=== PATIENT | female | born 2005 | race Caucasian/White ===

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

== ENCOUNTER 2023-01-30 14:54 | Emergency (ER) | payer OTHER, SELFPAY ==
[2023-01-30 15:04] VITALS: BP 123/77; PULSE 92; RESP 16; TEMP 36.3; O2SAT 100
--- NOTE | 2023-01-30 15:18 | ED.LOWEXIN ---
HPI - Extremity Injury (Lower) General Chief Complaint: Extremity Injury, Lower Stated Complaint: right Knee pain Time Seen by Provider: 01/30/23 15:18 Source: patient Mode of arrival: ambulatory Limitations: no limitations History of Present Illness HPI Narrative: 17-year-old female presents with complaint of pain to right knee. Patient states that her boyfriend was chasing her today, just by sitting around, and her right knee hit the couch. Reports that the pain caused her to be late for work so she decided not to go. Needs a work note. Ambulatory with steady gait. Full range of motion To right knee and distal neurovascularly intact. all systems reviewed and negative except as noted above. Related Data Home Medications Medication Instructions Recorded Confirmed etonogestrel 68 mg subdermal 1 implant subdermal ONCE 01/30/23 01/30/23 implant (Nexplanon) Allergies Allergy/AdvReac Type Severity Reaction Status Date / Time Penicillins AdvReac Hives Verified 01/30/23 14:56 Review of Systems Review of Systems: CONSTITUTIONAL: Denies fever, chills, or sweats. EYES: Denies visual changes, redness, or discharge. ENT: Denies rhinorrhea, congestion, sore throat, or otalgia. CARDIOVASCULAR: Denies chest pain, palpitations, or edema. RESPIRATORY: Denies cough or dyspnea. GASTROINTESTINAL: Denies abdominal pain, nausea, vomiting, or diarrhea. GENITOURINARY: Denies dysuria or hematuria. SKIN: Denies rash or itching. MUSCULOSKELETAL: Reports pain and swelling to right knee. NEUROLOGIC: Denies headache, numbness, or weakness. PSYCHIATRIC: Denies anxiety or depression. All other systems reviewed are negative, except as documented in HPI. PMFSH Past Medical History Medical History Patient denies significant medical history Social History Social History Smoking status: Never smoker Gender identity (if verbalized by the patient): Female Comments At time of signature, agree with nursing past medical, surgical, social and family history. There is no relevant family history pertinent to the presenting complaint. Exam Narrative: GENERAL: This is a well-nourished, well-developed patient, in no apparent distress. HEAD: normocephalic, atraumatic. EYES: PERRL. Sclera clear/white. Vision is grossly intact. EARS: External ears normal NOSE: External nose normal NECK: Neck supple, non-tender without lymphadenopathy, masses or thyromegaly. CARDIOVASCULAR: Regular rate and rhythm without murmurs, gallops, or rubs. RESPIRATORY: Clear to auscultation. Breath sounds equal bilaterally. No wheezes, rales, or rhonchi. SKIN: warm, Dry, intact with no suspicious lesions or rash, good texture and turgor. NEURO: awake, alert, and oriented to person, place and time. There were no obvious focal neurologic abnormalities. EXTREMITIES: Contusion noted to anterior aspect right knee with mild swelling, tender on palpation. full passive and active range of motion to right knee. No instability, negative anterior posterior drawer testing. Course Course Level of Care: Express Care Visit Vital Signs Vital signs: Vital Signs Temperature 36.3 C L 01/30/23 15:04 Pulse Rate 92 01/30/23 15:04 Respiratory Rate 16 01/30/23 15:04 Blood Pressure 123/77 01/30/23 15:04 Pulse Oximetry 100 01/30/23 15:04 Oxygen Delivery Room Air 01/30/23 15:04 Temperature 36.3 C L 01/30/23 15:04 Pulse Rate 92 01/30/23 15:04 Respiratory Rate 16 01/30/23 15:04 Blood Pressure 123/77 01/30/23 15:04 Pulse Oximetry 100 01/30/23 15:04 Oxygen Delivery Room Air 01/30/23 15:04 Reviewed MDM - Extremity Injury (Lower) MDM Narrative Medical decision making narrative: Patient is aware of diagnosis, understands and agrees to treatment plan. Anticipatory guidance given. Patient agrees to follow-up as direct
== END 2023-01-30 15:54 | disposition home or self-care (01) ==
PROVIDERS: Emergency Provider Nurse Practitioner Family
DX: S80.01XA Contusion of right knee, initial encounter (principal); W22.03XA Walked into furniture, initial encounter
CPT/HCPCS: 99213; G0463

== ENCOUNTER 2023-05-03 09:35 | Emergency (ER) | payer OTHER, SELFPAY ==
[2023-05-03 09:45] VITALS: BP 124/68; PULSE 102; RESP 16; TEMP 36.5; O2SAT 99
--- NOTE | 2023-05-03 09:56 | ED.URI ---
HPI - URI/Sore Throat General Chief Complaint: Upper Respiratory Infection Stated Complaint: Sinus/Headache/Diarrhea Time Seen by Provider: 05/03/23 10:00 Source: patient and RN notes reviewed Mode of arrival: ambulatory Limitations: no limitations History of Present Illness HPI Narrative: 18-year-old female presents with concern for runny nose, stuffy nose, dry cough and sore throat that started 4 days ago. 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 She denies fever, aches, chills, sweats. Reports diarrhea. MD elicited complaint: cough and sore throat Related Data Home Medications Medication Instructions Recorded Confirmed etonogestrel 68 mg subdermal 1 implant subdermal ONCE 01/30/23 05/03/23 implant (Nexplanon) Allergies Allergy/AdvReac Type Severity Reaction Status Date / Time Penicillins AdvReac Hives Verified 01/30/23 14:56 Review of Systems Review of Systems: CONSTITUTIONAL: Denies malaise, chills, sweats, or fever. EYES: Denies visual changes, redness, or discharge. ENT: Reports rhinorrhea, congestion, sore throat. Denies sinus pain, otalgia CARDIOVASCULAR: Denies chest pain, palpitations, or edema. RESPIRATORY: Reports cough. Denies dyspnea. GASTROINTESTINAL: Denies abdominal pain, nausea, vomiting. Reports diarrhea SKIN: Denies rash or itching. MUSCULOSKELETAL: Denies myalgia. NEUROLOGIC: Denies headache. All systems reviewed & are unremarkable except as noted in HPI and below PMFSH Past Medical History Medical History Patient denies significant medical history Social History Social History Smoking status: Never smoker Gender identity (if verbalized by the patient): Female Comments At time of signature, agree with nursing past medical, surgical, social and family history. There is no relevant family history pertinent to the presenting complaint Exam Narrative: GENERAL: Well-appearing, well-nourished, and in no acute distress. HEAD: Normocephalic EYES: PERRLA, conjunctivae clear ENT: Nares clear, turbinates edematous and erythematous, clear discharge. Mucous membranes moist. TM pearly hsieh with dull light reflex bilaterally; no tragal tenderness. Oropharynx not erythematous without lesions. Tonsils not enlarged and without exudate, no drooling, no hoarseness, no trismus, uvula midline. NECK: Supple. No lymphadenopathy CHEST: Clear to auscultation, breath sounds equal. No wheezing, rhonchi, rales, or stridor. No respiratory distress, speaks in full sentences. HEART: Regular rate and rhythm. No murmur heard. SKIN: Warm, dry, no rash. NEURO: Alert and oriented x3. PSYCH: Normal mood and affect Course Course Emergency Course: Patient is aware of diagnosis, understands and agrees to treatment plan. Anticipatory guidance given. Patient agrees to follow-up as directed and is aware of reasons to seek care at the emergency department. Portions of this record may have been created with voice recognition software Level of Care: Express Care Visit Vital Signs Vital signs: Vital Signs Temperature 97.7 F 05/03/23 09:45 Pulse Rate 102 H 05/03/23 09:45 Respiratory Rate 16 05/03/23 09:45 Blood Pressure 124/68 05/03/23 09:45 Pulse Oximetry 99 05/03/23 09:45 Oxygen Delivery Room Air 05/03/23 09:45 Temperature 97.7 F 05/03/23 09:45 Pulse Rate 102 H 05/03/23 09:45 Respiratory Rate 16 05/03/23 09:45 Blood Pressure 124/68 05/03/23 09:45 Pulse Oximetry 99 05/03/23 09:45 Oxygen Delivery Room Air 05/03/23 09:45 Reviewed. MDM - URI/Sore Throat MDM Narrative Medical decision making narrative: Differential diagnosis considered: Kumar virus, strep pharyngitis, allergic rhinitis, upper respiratory tract infection, sinusitis, rhinosinusitis, nasopharyngitis. viral pharyngitis, otitis media, otitis exter
== END 2023-05-03 10:18 | disposition home or self-care (01) ==
PROVIDERS: Emergency Provider Nurse Practitioner; PCP Internal Medicine
DX: J06.9 Acute upper respiratory infection, unspecified (principal)
CPT/HCPCS: 99213; G0463

== ENCOUNTER 2023-08-18 08:49 | Emergency (ER) | payer OTHER, SELFPAY ==
--- NOTE | 2023-08-18 08:52 | ED.URI ---
HPI - URI/Sore Throat General Chief Complaint: Upper Respiratory Infection Stated Complaint: Sinus Time Seen by Provider: 08/18/23 08:52 Source: patient Mode of arrival: ambulatory Limitations: no limitations History of Present Illness HPI Narrative: Catherine is a 18-year-old female patient presenting to the clinic today with complaints of sinus congestion, nausea, vomiting, diarrhea, sore throat, and general abdominal discomfort times 8 days. She reports over the last 1-2 days she has been vomiting. Was vomiting yesterday at work and her work told her she needed to come in to be evaluated to be able to return. Related Data Home Medications Medication Instructions Recorded Confirmed etonogestrel 68 mg subdermal 1 implant subdermal ONCE 01/30/23 08/18/23 implant (Nexplanon) Allergies Allergy/AdvReac Type Severity Reaction Status Date / Time Penicillins AdvReac Hives Verified 08/18/23 08:59 Review of Systems Review of Systems: Pertinent positives per HPI. Patient denies any fever, chills, rash, headache, visual changes, dizziness, cough, runny nose, sore throat, shortness of breath, chest pain, palpitations, constipation, or any urinary issues. [facility] Past Medical History Medical History Patient denies significant medical history Social History Social History Smoking status: Never smoker Gender identity (if verbalized by the patient): Female Comments At the time of my signature, I reviewed and agree with the nursing past medical, surgical, social, and family history. There is no relevant family history pertinent to the patient complaint. Exam Narrative: General: Well-developed, well nourished, in no apparent distress Head: Normocephalic, atraumatic Eyes: Pupils equally round and reactive to light bilaterally, EOM intact, sclera and conjunctive clear, no discharge, lids normal Ears: TMs intact and clear, ear canals clear, no drainage, grossly hearing normal. Nose: Nares patent, clear discharge, no inflammation, no sinus tenderness. Mouth: Oropharynx red without lesions or masses, good dentition, MMM. Neck: Supple, trachea midline, no enlargement of anterior or posterior cervical nodes, no thyroid masses or goiter palpable. Cardio: Regular rate and rhythm, s1 and s2 normal, no murmur appreciated. Resp: Clear to auscultation bilaterally anteriorly and posteriorly, no rhonchi, rales, wheezing or rubs Abdomen: Soft, pliable, bowel sounds present in all quadrants, mild tender to palpation over the lower abdomen and suprapubic area, no organomegly, no CVAT tenderness. Course Course Emergency Course: Portions of this record may have been created with voice recognition software. Level of Care: Express Care Visit Vital Signs Vital signs: Vital signs reviewed MDM - URI/Sore Throat MDM Narrative Medical decision making narrative: At the time of visit patient is resting comfortably on the exam table. UA, UA preg, and strep test was performed. Strep test was negative. We will send strep for culture. urine preg test was negative. UA shows trace of leukocytes and uro. We will send for culture. I suspect patient has viral gastroenteritis. Prescription for Zofran was sent to the pharmacy and supportive measures were discussed with patient she voiced understanding of the discharge instructions and agrees to treatment plan. Differential Diagnosis Differential diagnosis: Likely upper respiratory infection, sinusitis, viral infection, bronchitis, influenza, pharyngitis and other (COVID) Discharge Plan Discharge Clinical Impression: Viral gastroenteritis Patient Disposition: Home, Self-Care Condition: Stable Instructions: Antibiotic Form, Gastroenteritis (ED) Additional Instructions: Strep test was negative. We will send strep for culture if this comes back positive we
[2023-08-18 08:58] VITALS: BP 108/75; PULSE 92; RESP 16; TEMP 36.6; O2SAT 99
== END 2023-08-18 09:40 | disposition home or self-care (01) ==
PROVIDERS: Emergency Provider Nurse Practitioner Family; PCP Internal Medicine
DX: A08.4 Viral intestinal infection, unspecified (principal)
CPT/HCPCS: 81003; 87081; 87086; 87880; 99213; G0463

== ENCOUNTER 2024-01-10 15:36 | Emergency (ER) | payer OTHER, SELFPAY ==
[2024-01-10 15:50] VITALS: BP 144/87; PULSE 102; RESP 18; TEMP 36.7; O2SAT 99
--- NOTE | 2024-01-10 16:00 | ED.GENADULT ---
HPI - General Adult General Chief complaint: Abdominal Pain Stated complaint: stomach cramping Time Seen by Provider: 01/10/24 16:00 Source: patient, RN notes reviewed and old records reviewed Mode of arrival: ambulatory Limitations: no limitations History of Present Illness HPI narrative: 18-year-old female presents to the [facility] with complaints of lower abdominal cramping without significant pain since last night. Denies any urinary symptoms. Denies any diarrhea. Denies any nausea or vomiting. Denies any back pain Unknown last period Treatments prior to arrival: none Related Data Home Medications Medication Instructions Recorded Confirmed etonogestrel 68 mg subdermal 1 implant subdermal ONCE 01/30/23 01/10/24 implant (Nexplanon) Allergies Allergy/AdvReac Type Severity Reaction Status Date / Time Penicillins AdvReac Hives Verified 01/10/24 15:55 Review of Systems Review of Systems: All systems reviewed & are unremarkable except as noted in HPI and below Constitutional: Constitutional: Reports no additional constitutional complaints Eyes: Eyes: Reports no additional eye complaints ENT: Reports system reviewed and no additional complaints, except as documented Cardiovascular: Cardiovascular: Reports no additional cardiovascular complaints, Denies chest pain and Denies dyspnea Respiratory: Respiratory: Reports no additional respiratory complaints, Denies chest congestion, Denies cough and Denies dyspnea Gastrointestinal: Gastrointestinal: Reports as per HPI, Reports abdominal pain (Cramping generalized), Reports GI cramping, Denies nausea and Denies vomiting Musculoskeletal: Musculoskeletal: Reports no additional musculoskeletal complaints Integumentary/Breasts: Skin/Breast: Reports system reviewed and no additional complaints, except as docu Neurologic: Reports system reviewed and no additional complaints, except as documented Psychiatric: Psychiatric: Reports no additional psychiatric complaints Allergic/Immunologic: Allergic/Immunologic: Reports no additional allergic/immunologic complaints [facility] Past Medical History Medical History Patient denies significant medical history Social History Social History Smoking status: Never smoker Gender identity (if verbalized by the patient): Female Comments At the time of my signature, I reviewed and agree with the nursing past medical, surgical, social, and family history. There is no relevant family history pertinent to the patient complaint. Exam Const: General: cooperative, healthy appearing, comfortable, no acute distress, well developed, alert and well nourished Nutritional Appearance: well nourished Orientation/consciousness: patient oriented x3 Limitations: no limitations HENMT: Head: normal to inspection Ears: hearing grossly normal bilaterally and external ears normal Face/Nose/Sinus: Normal external nose present, Normal nares present, Normal nasal mucous membranes and turbinates present, normal facial exam and face symmetric Face and sinus: normal facial exam and face symmetric Mouth: Yes Normal oral and palatal mucosa present, Yes lip normal and Yes moist mucous membranes Throat: posterior oropharynx normal and uvula midline Eyes: General: appearance normal, both eyes and all related structures Alignment and Position: alignment normal Periorbital: periorbital findings normal Pupils: Equal, round and reactive pupils present EOM: EOMs intact bilaterally Neck: Neck: normal visual inspection, full ROM, no lymphadenopathy and no meningeal signs Chest: Chest palpation & inspection: normal inspection of the chest Resp: Effort & Inspection: normal respiratory effort and able to speak in complete sentences Auscultation: clear to auscultation bilaterally, no crackles, no rales, no rhonchi and no wheezes Cardio: Rate: regular rate
== END 2024-01-10 16:28 | disposition home or self-care (01) ==
PROVIDERS: Emergency Provider Nurse Practitioner; PCP Internal Medicine
DX: Z32.02 Encounter for pregnancy test, result negative (principal); N30.00 Acute cystitis without hematuria
CPT/HCPCS: 81003; 81025; 87086; 99213; G0463

== ENCOUNTER 2024-04-01 18:27 | Emergency (ER) | payer OTHER, SELFPAY ==
--- NOTE | ~2024-04-01 | XR_ITS ---
EXAMINATION: XR ankle RT min 3V DATE: 04/01/2024 18:52 INDICATION: Right ankle pain. Fall. TECHNIQUE: 4 views of right ankle were obtained. COMPARISON: None. FINDINGS: Bone alignment is normal. No fracture. There is mild osteoarthritis of talonavicular joint. There is ankle soft tissue swelling. IMPRESSION: 1. Mild osteoarthritis of talonavicular joint. Reviewed, dictated and finalized at location E.
[2024-04-01 18:43] VITALS: BP 138/82; PULSE 96; RESP 18; TEMP 36.8; O2SAT 100
--- NOTE | 2024-04-01 19:54 | ED.GENADULT ---
HPI - General Adult General Chief complaint: Extremity Injury, Lower Stated complaint: rt ankle injury Source: patient Mode of arrival: ambulatory Limitations: no limitations History of Present Illness HPI narrative: Patient presents for evaluation of right ankle pain. Symptom onset today. She was at a park with her kids. She states she stepped on a soft surface, which caused her to fall. She did not hit her head. No LOC. She heard a pop in her right ankle. She now has pain that she rates 8/10 in severity in the lateral aspect of the right ankle. She states it feels like something is squeezing. She denies paresthesias. Pain is worse with movement and weight-bearing. She has not taken any medication for symptoms. She states she is not . She is compliant with control. Related Data Home Medications Medication Instructions Recorded Confirmed etonogestrel 68 mg subdermal 1 implant subdermal ONCE 01/30/23 04/01/24 implant (Nexplanon) Allergies Allergy/AdvReac Type Severity Reaction Status Date / Time Penicillins AdvReac Hives Verified 04/01/24 18:35 Review of Systems Review of Systems: CONSTITUTIONAL: Denies fever, chills, or sweats. EYES: Denies visual changes, redness, or discharge. ENT: Denies rhinorrhea, congestion, sore throat, or otalgia. CARDIOVASCULAR: Denies chest pain, palpitations, or edema. RESPIRATORY: Denies cough or dyspnea. GASTROINTESTINAL: Denies abdominal pain, nausea, vomiting, or diarrhea. GENITOURINARY: Denies dysuria or hematuria. SKIN: Denies rash or itching. MUSCULOSKELETAL: Reports right ankle swelling and pain. NEUROLOGIC: Denies headache, numbness, dizziness, or weakness. PSYCHIATRIC: Denies anxiety or depression. [facility] Past Medical History Medical History Patient denies significant medical history Surgical History Surgical History No pertinent past surgical history Family History Family History Mother Family history non-contributory Social History Social History Smoking status: Never smoker Substance use: never Living arrangements: with family Gender identity (if verbalized by the patient): Female Spiritual care concerns: No Exam Narrative: GENERAL: Well-appearing, well-nourished, and in no acute distress. HEAD: Normocephalic, atraumatic. EYES: PERRLA and EOMI. ENT: Nares clear, no rhinorrhea or epistaxis. Mucous membranes moist. Oropharynx without tonsillar hypertrophy exudate or other lesions. Bilateral TMs pearly hsieh nonbulging NECK: Supple. No adenopathy or masses. No carotid bruits or JVD CHEST: Clear to auscultation. No respiratory distress. No wheezes rales or rhonchi HEART: Regular rate and rhythm. No murmur heard. Normal peripheral pulses. ABDOMEN: Soft, nontender, nondistended, normal active bowel sounds. EXTREMITIES: There is trace nonpitting edema noted to the right ankle. She is able to dorsi and plantar flex the right foot. There is tenderness over the lateral aspect of the right ankle without any crepitus or deformity. SKIN: Warm, dry, no rash. NEURO: No focal deficits. Alert and oriented x3. PSYCH: Normal mood and affect. Course Course Emergency Course: This is a 19-year-old female who presented for evaluation of right ankle pain and swelling following a fall. X-ray negative for fracture. Exam is consistent with sprain. Provided with Sharan wrap. Advised on RICE therapy. NSAIDs and Flexeril for pain. Follow-up with primary provider. Go to the ER for worsening symptoms. Patient in agreement with plan of care Level of Care: Express Care Visit Vital Signs Vital signs: Vital Signs Temperature 36.8 C 04/01/24 18:43 Pulse Rate 96 04/01/24 18:43 Res
== END 2024-04-01 20:05 | disposition home or self-care (01) ==
PROVIDERS: Emergency Provider Nurse Practitioner
DX: S93.401A Sprain of unspecified ligament of right ankle, initial encounter (principal); W19.XXXA Unspecified fall, initial encounter
CPT/HCPCS: 73610; 99213; G0463

== ENCOUNTER 2024-05-06 11:39 | Emergency (ER) | payer OTHER, SELFPAY ==
--- NOTE | ~2024-05-06 | XR_ITS ---
EXAMINATION: XR foot RT min 3V DATE: 05/06/2024 12:09 INDICATION: Lateral right foot and ankle pain post injury TECHNIQUE: Dorsoplantar, two oblique and lateral views of the right foot were obtained. COMPARISON: None. FINDINGS: Nondisplaced oblique extra articular fracture of the distal diaphysis of the right fifth metatarsal. Alignment remains essentially anatomic. No other fractures identified. Joint spaces are normal. Mild soft tissue swelling along the lateral aspect of the forefoot. IMPRESSION: 1. Nondisplaced extra articular distal diaphyseal fracture of the right fifth metatarsal. Reviewed, dictated and finalized at location A. IMPRESSION: 1. Nondisplaced extra articular distal diaphyseal fracture of the right fifth m etatarsal.
[2024-05-06 11:52] VITALS: BP 120/76; PULSE 73; RESP 16; TEMP 37.2; O2SAT 98
--- NOTE | 2024-05-06 11:55 | ED.LOWEXIN ---
HPI - Extremity Injury (Lower) General Chief Complaint: Extremity Injury, Lower Stated Complaint: right foot/ankle pain Time Seen by Provider: 05/06/24 11:55 Source: patient and RN notes reviewed Mode of arrival: ambulatory Limitations: no limitations History of Present Illness HPI Narrative: 19-year-old female presents concern for injury to her right foot. Reports she sprained the right ankle about a month ago and that was healing normally. Reports today she rolled the ankle and began having foot pain beneath the 5th digit. She denies intervention for the pain so far. She denies decreased strength, sensation, range of motion in the foot or digits. MD complaint: foot injury Related Data Home Medications Medication Instructions Recorded Confirmed etonogestrel 68 mg subdermal 1 implant subdermal ONCE 01/30/23 04/01/24 implant (Nexplanon) Allergies Allergy/AdvReac Type Severity Reaction Status Date / Time Penicillins AdvReac Hives Verified 04/01/24 18:35 Review of Systems Review of Systems: CONSTITUTIONAL: Denies malaise, chills, sweats, or fever. SKIN: Denies rash or itching, open skin, laceration, abrasion, redness, warmth, swelling. MUSCULOSKELETAL: Reports right foot pain and bruising NEUROLOGIC: Denies numbness, weakness All systems reviewed & are unremarkable except as noted in HPI and below PMFSH Past Medical History Medical History (Updated 05/06/24 @ 12:15 by Roma Roe NP) Patient denies significant medical history Surgical History Surgical History No pertinent past surgical history Family History Family History Mother Family history non-contributory Social History Social History Smoking status: Never smoker Substance use: never Living arrangements: with family Gender identity (if verbalized by the patient): Female Spiritual care concerns: No Comments At time of signature, agree with nursing past medical, surgical, social and family history. There is no relevant family history pertinent to the presenting complaint Exam Narrative: GENERAL: Well-appearing, well-nourished, and in no acute distress. HEAD: Normocephalic, atraumatic. EYES: PERRLA, conjunctivae clear NECK: Supple. CHEST: Speaks in full sentences. No respiratory distress. HEART: Regular rate and rhythm. Normal and equal peripheral pulses. EXTREMITIES: Right foot, digits have grossly normal strength and sensation, normal range of motion. Mild lateral edema and ecchymosis. Normal sensation with sensitivity to light touch and pain. Tenderness below the 5th digit. No open wounds, no skin tenting, no devitalized tissue or atrophy, no trophic changes, no obvious deformity, alignment normal, nearby joints and structures intact. Distal pulses palpable and equal bilaterally, skin warm, dry, pink. Capillary refill less than 3 seconds. SKIN: Warm, dry, no rash. NEURO: Alert and oriented x3. PSYCH: Normal mood and affect Course Course Emergency Course: Patient is aware of diagnosis, understands and agrees to treatment plan. Anticipatory guidance given. Patient agrees to follow-up as directed and is aware of reasons to seek care at the emergency department. Portions of this record may have been created with voice recognition software Level of Care: Express Care Visit Vital Signs Vital signs: Vital Signs Temperature 99.0 F 05/06/24 11:52 Pulse Rate 73 05/06/24 11:52 Respiratory Rate 16 05/06/24 11:52 Blood Pressure 120/76 05/06/24 11:52 Pulse Oximetry 98 05/06/24 11:52 Oxygen Delivery Room Air 05/06/24 11:52 Temperature 99.0 F 05/06/24 11:52 Pulse Rate 73 05/06/24 11:52 Respiratory Rate 16 05/06/24 11:52 Blood Pressure 120/76 05/06/24 11:52 Pulse Oximetry 98 05/06/24 11:52 Oxygen Deliver
== END 2024-05-06 12:30 | disposition home or self-care (01) ==
PROVIDERS: Emergency Provider Nurse Practitioner
DX: S92.354A Nondisplaced fracture of fifth metatarsal bone, right foot, initial encounter for closed fracture (principal); X50.9XXA Other and unspecified overexertion or strenuous movements or postures, initial encounter
CPT/HCPCS: 73630; 99214; G0463

== ENCOUNTER 2024-06-30 09:48 | Outpatient (CLI) | payer OTHER, SELFPAY ==
--- NOTE | ~2024-06-30 | US_ITS ---
EXAMINATION: US venous doppler [facility] DATE: 06/30/2024 10:37 INDICATION: Right calf pain and swelling. TECHNIQUE: Grayscale ultrasound images without and with compression and Doppler ultrasound images of the bilateral lower extremity veins were obtained. COMPARISON: None. FINDINGS: The visualized portions of right common femoral vein, profunda (deep) femoral vein, femoral vein, pop liteal vein, peroneal veins, posterior tibial veins, and greater saphenous vein outflow are patent. The visualized portions of left common femoral vein, profunda femoral vein, femoral vein, popliteal v ein, peroneal veins, posterior tibial veins, and greater saphenous vein outflow are patent. IMPRESSION: 1. No deep venous thrombosis. Reviewed, dictated and finalized at location A.
== END 2024-06-30 09:49 | disposition home or self-care (01) ==
LOC: ANHIMG 09:49
PROVIDERS: Visit Provider Orthopaedic Surgery
DX: M79.669 Pain in unspecified lower leg (principal)
CPT/HCPCS: 93970

== ENCOUNTER 2024-08-01 13:38 | Emergency (ER) | payer OTHER, SELFPAY ==
--- NOTE | 2024-08-01 13:50 | ED.URI ---
HPI - URI/Sore Throat General Chief Complaint: Upper Respiratory Infection Stated Complaint: congested,sore throat,chest hurts when breathing Time Seen by Provider: 08/01/24 13:51 Source: patient, RN notes reviewed and old records reviewed Mode of arrival: ambulatory Limitations: no limitations History of Present Illness HPI Narrative: The patient presents with 24-36 hours worth congestion, sore throat, and pain with coughing. She has not been taking any medication for her symptoms. She denies any respiratory distress. Denies any fever, chills, sweats. Voices no other concerns or complaints at this time. She tested for COVID at work today, negative Related Data Home Medications Medication Instructions Recorded Confirmed No Home Medications 02/10/21 07/03/24 etonogestrel 68 mg subdermal 1 implant subdermal ONCE 01/30/23 07/03/24 implant (Nexplanon) Allergies Allergy/AdvReac Type Severity Reaction Status Date / Time calamine Allergy Rash Verified 07/03/24 09:42 hydrocortisone Allergy Rash Verified 07/03/24 09:42 Penicillins AdvReac Hives Verified 07/03/24 09:42 Review of Systems Review of Systems: All systems reviewed & are unremarkable except as noted in HPI and below Constitutional: Constitutional: Reports no additional constitutional complaints ENT: Reports system reviewed and no additional complaints, except as documented and Reports as per HPI Cardiovascular: Cardiovascular: Reports no additional cardiovascular complaints Respiratory: Respiratory: Reports no additional respiratory complaints, Reports pain with cough and Denies dyspnea Gastrointestinal: Gastrointestinal: Reports no additional gastrointestinal complaints PMFSH Past Medical History Medical History Closed fracture of fifth metatarsal bone of right foot Deep venous thrombosis (DVT) of right peroneal vein Healthy adolescent Patient denies significant medical history Surgical History Surgical History No pertinent past surgical history Family History Family History Mother Family history non-contributory Unknown Asthma Diabetes mellitus Father Diabetes mellitus Grandparent Diabetes mellitus Dementia Schizophrenia Other Breast cancer Lung disease Sibling Heart murmur Social History Social History Smoking status: Never smoker Alcohol intake: never Substance use: never Living arrangements: with family Occupation/Education: occupation 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 There is no relevant family history pertinent to the patient complaint. Exam Const: General: cooperative, no acute distress, alert and awake Orientation/consciousness: oriented to person, oriented to place and oriented to time HENMT: Head: normal to inspection Ears: TM's normal bilaterally Mouth: Yes moist mucous membranes Throat: posterior oropharynx abnormal erythema and postnasal drainage Resp: Effort & Inspection: normal respiratory effort and able to speak in complete sentences Auscultation: clear to auscultation bilaterally, no crackles, no rales, no rhonchi and no wheezes Cardio: Palpation: normal PMI Rate: regular rate Rhythm: regular rhythm Heart sounds: S1 normal heart sound present and S2 normal heart sound present Neuro: General: oriented to person, oriented to place and oriented to time Cranial nerves: Yes CN's II-XII intact bilaterally Psych: Appearance: grossly normal T
[2024-08-01 13:54] VITALS: BP 136/74; PULSE 96; RESP 16; TEMP 36.4; O2SAT 99
[2024-08-01 14:24] LABS: EDSTREPNEGPOS1 Negative (Negative)
== END 2024-08-01 14:29 | disposition home or self-care (01) ==
PROVIDERS: Emergency Provider Nurse Practitioner Family
DX: J06.9 Acute upper respiratory infection, unspecified (principal); Z86.718 Personal history of other venous thrombosis and embolism
CPT/HCPCS: 87081; 87880; 99213; G0463

== ENCOUNTER 2024-11-05 08:50 | Emergency (ER) | payer OTHER, SELFPAY ==
[2024-11-05 09:00] VITALS: BP 131/73; PULSE 78; RESP 20; TEMP 36.7; O2SAT 99
--- NOTE | 2024-11-05 09:02 | ED_ITS ---
HPI - URI/Sore Throat General Chief Complaint: Upper Respiratory Infection Stated Complaint: Sore Throat/Sinus Time Seen by Provider: 11/05/24 09:02 Source: patient Mode of arrival: ambulatory Limitations: no limitations History of Present Illness HPI Narrative: Patient is a 19-year-old female who presents with sore throat for 1 day with sinus congestion and cough for 2 days. Patient has taken [id number] m edication. Denies any fever, chills, nausea, vomiting, diarrhea. Related Data Home Medications ?Medication ?Instructions ?Recorded ?Confirmed ?Last Taken ?Type etonogestrel 68 mg subdermal 1 implant subdermal ONCE 01/30/23 11/05/24 Unknown History implant (Nexplanon) Allergies Allergy/AdvReac Type Severity Reaction Status Date / Time calamine Allergy Rash Verified 11/05/24 08:58 hydrocortisone Allergy Rash Verified 11/05/24 08:58 Penicillins AdvReac Hives Verified 11/05/24 08:58 Review of Systems Review of Systems: All systems reviewed & are unremarkable except as noted in HPI and below Constitutional: Constitutional: Denies body ache(s), Denies chills, Denies fatigue, Denies fever(s), Denies headache(s), Denies malaise and Denies weakness Eyes: Eyes: Denies blurry vision, Denies itchy eyes and Denies loss of vision ENT: Denies otalgia, Denies headache(s), Reports nasal congestion, Denies sinus pain and Denies sore throat Cardiovascular: Cardiovascular: Denies chest pain, Denies irregular heart rhythm and Denies dyspnea Respiratory: Respiratory: Reports cough and Denies dyspnea Gastrointestinal: Gastrointestinal: Denies abdominal pain, Denies diarrhea, Denies nausea and Denies vomiting Musculoskeletal: Musculoskeletal: Denies back pain, Denies myalgias and Denies arthralgias Integumentary/Breasts: Skin/Breast: Denies pruritus and Denies rash Neurologic: Denies headache(s), Denies loss of vision and Denies weakness Psychiatric: Psychiatric: Reports no additional psychiatric complaints Endocrine: Endocrine: Denies fatigue Allergic/Immunologic: Allergic/Immunologic: Denies itchy eyes PMFSH Past Medical History Medical History Deep venous thrombosis (DVT) of right peroneal vein Healthy adolescent Closed fracture of fifth metatarsal bone of right foot Patient denies significant medical history Surgical History Surgical History No pertinent past surgical history Family History Family History Mother Family history non-contributory Unknown Asthma Diabetes mellitus Father Diabetes mellitus Grandparent Diabetes mellitus Dementia Schizophrenia Other Breast cancer Lung disease Sibling Heart murmur Social History Social History Smoking status: Never smoker Alcohol intake: never Substance use: never Living arrangements: with family Occupation/Education: occupation 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 There is no relevant family history pertinent to the presenting complaint. Exam Const: General: cooperative, healthy appearing, comfortable, no acute distress and well nourished Nutritional Appearance: well nourished Orientation/consciousness: patient oriented x3 Limitations: no limitations HENMT: Head: normal to inspection, normocephalic and atraumatic Ears: hearing grossly normal bilaterally, external ears normal, TM's normal bilaterally, EAC's normal and no periauricular adenopathy Face/Nose/Sinus: Normal external nose present, Abnormal mucous membranes and turbinates present erythematous bilateral and diffuse, normal facial exam, sinuses nontender and face symmetric Face and sinus: normal facial exam, sinuses nontender and face symmetric Mouth: Yes Normal oral and palatal mucosa present, Yes lip normal, Yes tongue normal, Yes Normal salivary glands and ducts present, Yes oropharynx normal and Yes moist mucous membranes Teeth and gingiva: dentition normal Throat: posterior oropharynx normal, tonsils normal and uvula midline Eyes: General: appearance normal, both eyes and all related structures Al ignment and Position: alignment normal and position normal Periorbital: periorbital findings normal Eyelids: eyelids normal Pupils: Equal, round and reactive pupils present Neck: Neck: normal visual inspection, full ROM, no lymphadenopathy and supple Chest: Chest palpation & inspection: normal inspection of the chest and normal palpation of entire chest wall Resp: Effort & Inspection: normal respiratory effort and able to speak in complete sentences Auscultation: clear to auscultation bilaterally, no crackles, no rales, no rhonchi and no wheezes Cardio: Rate: regular rate Rhythm: regular rhythm Heart sounds: S1 normal heart sound present and S2 normal heart sound present GI: Inspection: normal to inspection Skin: General skin exam: normal color and no rashes or lesions noted Neuro: General: patient oriented x3 and moves all extremities Cranial nerves: Yes Equal, round and reactive pupils present Speech: normal speech Gait exam (Neuro): Normal gait present Extrem: General: normal to inspection, full ROM and no edema Psych: Appearance: grossly normal and well kempt Mental Status: mental status grossly normal Speech and movement: Normal speech and movement present Affect: normal affect Attitude: cooperative Thought process: Normal thought process present Course Course Emergency Course: Patient is aware of diagnosis, understands and agrees to treatment plan. Anticipatory guidance given. Patient agrees to follow-up as directed and is aware of reasons to seek care at the emergency department. Portions of this record may have been created with voice recognition software Level of Care: Express Care Visit Vital Signs Vital signs: Vital Signs Temperature 36.7 C 11/05/24 09:00 Pulse Rate 78 11/05/24 09:00 Respiratory Rate 20 11/05/24 09:00 Blood Pressure 131/73 11/05/24 09:00 Pulse Oximetry 99 11/05/24 09:00 Oxygen Delivery Room Air 11/05/24 09:00 Temperature 36.7 C 11/05/24 09:00 Pulse Rate 78 11/05/24 09:00 Respiratory Rate 20 11/05/24 09:00 Blood Pressure 131/73 11/05/24 09:00 Pulse Oximetry 99 11/05/24 09:00 Oxygen Delivery Room Air 11/05/24 09:00 Reviewed MDM - URI/Sore Throat MDM Narrative Medical decision making narrative: Discharge instructions reviewed with patient, as well as provided in writing per nursing staff. The instructions also include specific and strict return/GO TO THE ER as well as f/u information. All questions have been answered, and the patient deny any further questions with discharge and discharge plan. Differential diagnosis considered: Kumar virus, strep pharyngitis, allergic rhinitis, upper respiratory tract infection, sinusitis, rhinosinusitis, nasopharyngitis. viral pharyngitis, otitis media, otitis externa, otitis effusion, foreign body, cerumen impaction, viral syndrome, and influenza.? Exam findings show no acute concerns or changes; patient is non-toxic appearing and is in no distress.? Patient is appropriate for outpatient treatment and follow- up.? Medical Records Attestation: I reviewed the patient's medical records. Lab Data Attestation: I reviewed the patient's lab results. Labs: Lab Results 11/05/24 Range/Units 09:38 POC Grp A Strep Screen Negative (Negative) Discharge Plan Discharge Clinical Impression: Upper respiratory infection Qualifiers: URI type: acute nasopharyngitis (common cold) Qualified Code(s): J00 - Acute nasopharyngitis [common cold] Patient Disposition: Home, Self-Care Condition: Stable Instructions: Upper Respiratory Infection (ED) Additional Instructions: Your rapid strep swab was negative today at [facility]. A throat culture will be sent to the laboratory for further testing. If the test is positive, you will receive a phone call within 48 hours and an appropriate antibiotic will be initiated at that time. Your symptoms are likely due to a viral illness, which is not treated with antibiotics. Viral symptoms can be present for up to a few weeks. -Alternate Tylenol and Motrin per package directions for fever or pain. -Antihistamine medication such as Benadryl/Zyrtec at night and Claritin/Floresita during the day can help improve symptoms. -Use Flonase twice a day for 5 days then daily to help reduce the inflammation and dry up your sinuses. -You can also use Sudafed behind the pharmacy counter(12 or 24 hour). Be sure to drink plenty of water with these medications at least 8 ounces with every dose and it is important to drink 8 to 10 glasses of water per day. Water is a natural decongestant -Eat and drink things that are easy to swallow, like tea or soup, or popsicles. -Oral rinses such as: Salt water gargles and/or may use topical anesthetic (eg. Chloraseptic spray) or lozenges to relieve dryness or throat pain). -Frequent hand washing or hand assistant press operator is one of the best ways to prevent spread of infection. -Using a vaporizer or humidifier at night will also help thin secretions and help with coughing up phlegm. -Follow up with primary care provider in 3-5 days if condition is not improving - For new or worsening symptoms go directly to the nearest ER Patient Language: Andorran Prescriptions: New benzonatate 100 mg capsule 100 mg PO BID PRN (Reason: cough) Qty: 14 0RF fluticasone propionate [Flonase Allergy Relief] 50 mcg/actuation spray,suspension 1 spray intranasal DAILY Qty: 16 0RF Rx Instructions: administer into each nostril loratadine 10 mg tablet 10 mg PO DAILY Qty: 30 0RF No Action ibuprofen 800 mg tablet 800 mg PO TID PRN (Reason: pain) Qty: 30 0RF Nexplanon 68 mg Implant 1 implant SUBDERMAL ONCE Rx Instructions: as a single dose Follow-up/Referrals: PHYSICIAN,CARAMEL CUTTER HAND [Primary Care Provider] - Sunday Aguirre MD [Physician] - 3 Days Stand Alone Forms: Work/School Release IP Time of Disposition: 09:46
[2024-11-05 09:41] LABS: EDSTREPNEGPOS1 Negative (Negative)
== END 2024-11-05 09:47 | disposition home or self-care (01) ==
PROVIDERS: Emergency Provider Nurse Practitioner Family
DX: J00 Acute nasopharyngitis [common cold] (principal); Z86.718 Personal history of other venous thrombosis and embolism
CPT/HCPCS: 87081; 87880; 99213; G0463

== ENCOUNTER 2024-11-19 12:11 | Emergency (ER) | payer OTHER, SELFPAY ==
[2024-11-19 12:16] VITALS: BP 127/77; PULSE 100; RESP 16; TEMP 36.4; O2SAT 100
[2024-11-19 12:42] LABS: EDCOVIDSCREEN Negative (Negative); EDINFLUASCREEN Negative (Negative); EDINFLUBSCREEN Negative (Negative)
--- NOTE | 2024-11-19 12:54 | ED.NAVMDI ---
HPI - Nausea/Vomiting/Diarrhea General Chief complaint: Nausea/Vomiting/Diarrhea Stated complaint: Fever/Shaking/Vomiting Time Seen by Provider: 11/19/24 12:54 Source: patient, RN notes reviewed and old records reviewed Mode of arrival: ambulatory Limitations: no limitations History of Present Illness HPI Narrative: Patient presents with complaints of 4 hours of nausea, vomiting, diarrhea. She reports some cramping abdominal pain. No localization of pain. She reports subjective fever and sweats. Has not checked her temperature. She has not taken anything for her symptoms. She reports she was in her normal state of health until symptoms began this morning Related Data Home Medications ?Medication ?Instructions ?Recorded ?Confirmed ?Last Taken ?Type etonogestrel 68 mg subdermal 1 implant subdermal ONCE 01/30/23 11/05/24 Unknown History implant (Nexplanon) Allergies Allergy/AdvReac Type Severity Reaction Status Date / Time calamine Allergy Rash Verified 11/19/24 12:14 hydrocortisone Allergy Rash Verified 11/19/24 12:14 Penicillins AdvReac Hives Verified 11/19/24 12:14 Review of Systems Review of Systems: All systems reviewed & are unremarkable except as noted in HPI and below Constitutional: Constitutional: Reports no additional constitutional complaints ENT: Reports system reviewed and no additional complaints, except as documented Cardiovascular: Cardiovascular: Reports no additional cardiovascular complaints Respiratory: Respiratory: Reports no additional respiratory complaints Gastrointestinal: Gastrointestinal: Reports no additional gastrointestinal complaints, Reports GI cramping, Reports diarrhea, Reports nausea and Reports vomiting PMFSH Past Medical History Medical History Deep venous thrombosis (DVT) of right peroneal vein Healthy adolescent Closed fracture of fifth metatarsal bone of right foot Patient denies significant medical history Surgical History Surgical History No pertinent past surgical history Family History Family History Mother Family history non-contributory Unknown Asthma Diabetes mellitus Father Diabetes mellitus Grandparent Diabetes mellitus Dementia Schizophrenia Other Breast cancer Lung disease Sibling Heart murmur Social History Social History Smoking status: Never smoker Alcohol intake: never Substance use: never Living arrangements: with family Occupation/Education: occupation 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 There is no relevant family history pertinent to the patient complaint. Exam Const: General: cooperative, no acute distress, alert and awake Orientation/consciousness: oriented to person, oriented to place and oriented to time HENMT: Head: normal to inspection Mouth: Yes moist mucous membranes Resp: Effort & Inspection: normal respiratory effort and able to speak in complete sentences Auscultation: clear to auscultation bilaterally, no crackles, no rales, no rhonchi and no wheezes Cardio: Palpation: normal PMI Rate: regular rate Rhythm: regular rhythm Heart sounds: S1 normal heart sound present and S2 normal heart sound present GI: GI Palp: Yes Soft to palpation, No Tenderness to palpation present (GI) and No Guarding due to palpation present (GI) Auscultation: normal bowel sounds Neuro: General: oriented to person, oriented to place and oriented to time Cranial nerves: Yes CN's II-XII intact bilaterally Psych: Appearance: grossly normal Thought process: Normal thought process present Insight: Good insight present (Psych) Judgement: Good judgement present (Psych) Course Course Level of Care: Express Care Visit Vital Signs Vital signs: Vital Signs Temperature 97.6 F 11/19/24 12:16 Pulse Rate 100 11/19/24 12:16 Respiratory Rate 16 11/19/24 12:16 Blood Pressure 127/77 11/19/24 12:16 Pulse Oximetry 100 11/19/24 12:16 Oxygen Delivery Room Air 11/19/24 12:16 Temperature 97.6 F 11/19/24 12:16 Pulse Rate 100 11/19/24 12:16 Respiratory Rate 16 11/19/24 12:16 Blood Pressure 127/77 11/19/24 12:16 Pulse Oximetry 100 11/19/24 12:16 Oxygen Delivery Room Air 11/19/24 12:16 Reviewed MDM - Nausea/Vomiting/Diarrhea MDM Narrative Medical decision making narrative: Patient in no distress, reassuring physical exam. Symptoms consistent with gastroenteritis. Supportive care measures discussed. Discharge instructions reviewed with patient, as well as provided in writing per nursing staff. The instructions also include specific and strict return/GO TO THE ER as well as f/u information. All questions have been answered, and the patient deny any further questions with discharge and discharge plan. Some parts of this dictation were generated by voice recognition software and may contain typographical and/or grammatical inaccuracies. Differential Diagnosis Differential diagnosis: Likely traveler's diarrhea, food poisoning and gastroenteritis Medical Records Attestation: I reviewed the patient's medical records. Lab Data Attestation: I reviewed the patient's lab results. Labs: Lab Results 11/19/24 Range/Units 12:18 POC Influenza A Ag Negative (Negative) POC Influenza B Ag Negative (Negative) POC SARS CoV-2 Ag Negative (Negative) Discharge Plan Discharge Clinical Impression: Gastroenteritis Patient Disposition: Home, Self-Care Condition: Stable Instructions: Antibiotic Form Additional Instructions: Take medications as prescribed. Follow with primary care provider. Emergency department for new or worse symptoms Patient Language: Icelandic Prescriptions: New ondansetron 4 mg tablet,disintegrating 4 mg PO Q8H PRN (Reason: nausea and vomiting) Qty: 10 0RF No Action benzonatate 100 mg capsule 100 mg PO BID PRN (Reason: cough) Qty: 14 0RF fluticasone propionate [Flonase Allergy Relief] 50 mcg/actuation spray,suspension 1 spray intranasal DAILY Qty: 16 0RF Rx Instructions: administer into each nostril loratadine 10 mg tablet 10 mg PO DAILY Qty: 30 0RF Nexplanon 68 mg Implant 1 implant SUBDERMAL ONCE Rx Instructions: as a single dose Follow-up/Referrals: PHYSICIAN,CHILD WELFARE MANAGER [Primary Care Provider] - Stand Alone Forms: Work/School Release IP Time of Disposition: 13:04
== END 2024-11-19 13:15 | disposition home or self-care (01) ==
PROVIDERS: Emergency Provider Nurse Practitioner Family
DX: K52.9 Noninfective gastroenteritis and colitis, unspecified (principal); Z20.822 Contact with and (suspected) exposure to COVID-19; Z86.718 Personal history of other venous thrombosis and embolism
CPT/HCPCS: 87426; 87804; 99213; G0463

== ENCOUNTER 2025-01-03 18:54 | Emergency (ER) | payer OTHER, SELFPAY ==
[2025-01-03 19:08] VITALS: BP 134/88; PULSE 84; RESP 15; TEMP 36.5; O2SAT 100
--- NOTE | 2025-01-03 19:34 | ED.EAR ---
HPI - Ear Problem General Chief complaint: Ear Stated complaint: left ear feels muffled Time Seen by Provider: 01/03/25 19:34 Source: patient, RN notes reviewed and old records reviewed Mode of arrival: ambulatory Limitations: no limitations History of Present Illness HPI Narrative: Patient presents with complaints of 2 days of left ear pain. Now feels as though hearing is muffled. Denies any injury or trauma. Related Data Home Medications ?Medication ?Instructions ?Recorded ?Confirmed ?Last Taken ?Type etonogestrel 68 mg subdermal 1 implant subdermal ONCE 01/30/23 01/03/25 Unknown History implant (Nexplanon) Allergies Allergy/AdvReac Type Severity Reaction Status Date / Time calamine Allergy Rash Verified 01/03/25 19:34 hydrocortisone Allergy Rash Verified 01/03/25 19:34 Penicillins AdvReac Hives Verified 01/03/25 19:34 Review of Systems Review of Systems: All systems reviewed & are unremarkable except as noted in HPI and below Constitutional: Constitutional: Reports no additional constitutional complaints ENT: Reports system reviewed and no additional complaints, except as documented and Reports otalgia (left) Cardiovascular: Cardiovascular: Reports no additional cardiovascular complaints Respiratory: Respiratory: Reports no additional respiratory complaints Gastrointestinal: Gastrointestinal: Reports no additional gastrointestinal complaints [facility] Past Medical History Medical History Deep venous thrombosis (DVT) of right peroneal vein Healthy adolescent Closed fracture of fifth metatarsal bone of right foot Patient denies significant medical history Surgical History Surgical History No pertinent past surgical history Family History Family History Mother Family history non-contributory Unknown Asthma Diabetes mellitus Father Diabetes mellitus Grandparent Diabetes mellitus Dementia Schizophrenia Other Breast cancer Lung disease Sibling Heart murmur Social History Social History Smoking status: Never smoker Alcohol intake: never Substance use: never Living arrangements: with family Occupation/Education: occupation 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 There is no relevant family history pertinent to the patient complaint. Exam Const: General: cooperative, no acute distress, alert and awake Orientation/consciousness: oriented to person, oriented to place and oriented to time HENMT: Head: normal to inspection Ears: TM abnormal bulging on the left and erythematous on the left Resp: Effort & Inspection: normal respiratory effort and able to speak in complete sentences Auscultation: clear to auscultation bilaterally, no crackles, no rales, no rhonchi and no wheezes Cardio: Palpation: normal PMI Rate: regular rate Rhythm: regular rhythm Heart sounds: S1 normal heart sound present and S2 normal heart sound present Neuro: General: oriented to person, oriented to place and oriented to time Cranial nerves: Yes CN's II-XII intact bilaterally Psych: Appearance: grossly normal Thought process: Normal thought process present Insight: Good insight present (Psych) Judgement: Good judgement present (Psych) Course Course Level of Care: Express Care Visit Vital Signs Vital signs: Vital Signs Temperature 97.7 F 01/03/25 19:08 Pulse Rate 84 01/03/25 19:08 Respiratory Rate 15 01/03/25 19:08 Blood Pressure 134/88 01/03/25 19:08 Pulse Oximetry 100 01/03/25 19:08 Oxygen Delivery Room Air 01/03/25 19:08 Temperature 97.7 F 01/03/25 19:08 Pulse Rate 84 01/03/25 19:08 Respiratory Rate 15 01/03/25 19:08 Blood Pressure 134/88 01/03/25 19:08 Pulse Oximetry 100 01/03/25 19:08 Oxygen Delivery Room Air 01/03/25 19:08 Reviewed Medical Decision Making MDM Narrative Medical decision making narrative: History and exam consistent with otitis media. Patient penicillin allergic. Start azithromycin. She is nontoxic appearing, stable for discharge home on p.o. antibiotic therapy. Discharge instructions reviewed with patient, as well as provided in writing per nursing staff. The instructions also include specific and strict return/GO TO THE ER as well as f/u information. All questions have been answered, and the patient deny any further questions with discharge and discharge plan. Some parts of this dictation were generated by voice recognition software and may contain typographical and/or grammatical inaccuracies. Medical Records Medical records reviewed: Yes I reviewed the external patient's medical records. Vital Signs Vital Signs: Vital Signs Temperature 97.7 F 01/03/25 19:08 Pulse Rate 84 01/03/25 19:08 Respiratory Rate 15 01/03/25 19:08 Blood Pressure 134/88 01/03/25 19:08 Pulse Oximetry 100 01/03/25 19:08 Oxygen Delivery Room Air 01/03/25 19:08 Temperature 97.7 F 01/03/25 19:08 Pulse Rate 84 01/03/25 19:08 Respiratory Rate 15 01/03/25 19:08 Blood Pressure 134/88 01/03/25 19:08 Pulse Oximetry 100 01/03/25 19:08 Oxygen Delivery Room Air 01/03/25 19:08 reviewed Lab Data Lab results reviewed: Yes I reviewed the patient's lab results. Lab results narrative: reviewed Discharge Plan Discharge Clinical Impression: Otitis media Patient Disposition: Home, Self-Care Condition: Stable Instructions: Antibiotic Form, Earache (ED) Additional Instructions: Take medications as prescribed. Follow with primary care provider. Emergency department for new or worse symptoms Patient Language: Kittitian Prescriptions: New azithromycin 250 mg tablet See Rx Instructions .ROUTE .COMPLEX Qty: 6 0RF Rx Instructions: For 250 mg dose pack: take 500 mg today (day 1), then 250 mg for 4 days (days 2-5) prednisone 50 mg tablet 50 mg PO DAILY Qty: 5 0RF No Action fluticasone propionate [Flonase Allergy Relief] 50 mcg/actuation spray,suspension 1 spray intranasal DAILY Qty: 16 0RF Rx Instructions: administer into each nostril loratadine 10 mg tablet 10 mg PO DAILY Qty: 30 0RF Nexplanon 68 mg Implant 1 implant SUBDERMAL ONCE Rx Instructions: as a single dose Follow-up/Referrals: Adrien Shirley MD [Primary Care Provider] - 2 Weeks Time of Disposition: 19:39
== END 2025-01-03 19:48 | disposition home or self-care (01) ==
PROVIDERS: Emergency Provider Nurse Practitioner Family; PCP Internal Medicine
DX: H66.92 Otitis media, unspecified, left ear (principal)
CPT/HCPCS: 99213; G0463

== ENCOUNTER 2025-02-11 11:27 | Emergency (ER) | payer OTHER, SELFPAY ==
[2025-02-11 11:37] VITALS: BP 151/78; PULSE 80; RESP 20; TEMP 36.5; O2SAT 100
--- NOTE | 2025-02-11 12:09 | ED.URI ---
HPI - URI/Sore Throat General Chief Complaint: Upper Respiratory Infection Stated Complaint: sinus/left ear irritation Time Seen by Provider: 02/11/25 12:02 Source: patient and RN notes reviewed Mode of arrival: ambulatory Limitations: no limitations History of Present Illness HPI Narrative: Patient presents today complaining of a 3 day history of nasal congestion with decreased hearing in the left ear since yesterday. Denies fever, sore throat cough. She has tried allergy medication without relief. Patient was treated for left otitis media last month with azithromycin and states symptoms had fully resolved. Related Data Home Medications ?Medication ?Instructions ?Recorded ?Confirmed ?Last Taken ?Type etonogestrel 68 mg subdermal 1 implant subdermal ONCE 01/30/23 01/03/25 Unknown History implant (Nexplanon) Allergies Allergy/AdvReac Type Severity Reaction Status Date / Time calamine Allergy Rash Verified 02/11/25 11:45 hydrocortisone Allergy Rash Verified 02/11/25 11:45 Penicillins AdvReac Hives Verified 02/11/25 11:45 Review of Systems Review of Systems: CONSTITUTIONAL: Denies body aches, fever, chills, or sweats. EYES: Denies visual changes, redness, or discharge. ENT: Denies rhinorrhea, sore throat, or otalgia.+ congestion decreased hearing CARDIOVASCULAR: Denies chest pain, palpitations, or edema. RESPIRATORY: Denies cough or dyspnea. GASTROINTESTINAL: Denies abdominal pain, nausea, vomiting, or diarrhea. GENITOURINARY: Denies dysuria or hematuria. SKIN: Denies rash, itching, or wounds. MUSCULOSKELETAL: Denies back pain, joint pain, or myalgia. NEUROLOGIC: Denies headache, numbness, tingling, or weakness. PSYCH: Denies depression or anxiety. [facility] Past Medical History Medical History Deep venous thrombosis (DVT) of right peroneal vein Healthy adolescent Closed fracture of fifth metatarsal bone of right foot Patient denies significant medical history Surgical History Surgical History No pertinent past surgical history Family History Family History Mother Family history non-contributory Unknown Asthma Diabetes mellitus Father Diabetes mellitus Grandparent Diabetes mellitus Dementia Schizophrenia Other Breast cancer Lung disease Sibling Heart murmur Social History Social History Smoking status: Never smoker Alcohol intake: never Substance use: never Living arrangements: with family Occupation/Education: occupation 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 Please see nursing chart for further information. There is no relevant family history pertinent to the presenting complaint Exam Narrative: GENERAL: Well-appearing, well-nourished, and in no acute distress. HEAD: Normocephalic, atraumatic. EYES: EOMI. No redness or drainage. Conjunctivae normal. ENT: Mucous membranes pink and moist. Nares congested. No rhinorrhea. Right TM and canal normal. Left TM erythematous and bulging. Left ear canal moist with white material with tragal tenderness. NECK: Normal AROM. Supple. No lymphadenopathy. CHEST: No respiratory distress. Clear to auscultation. HEART: Regular rate and rhythm. No murmur appreciated. EXTREMITIES: Normal range of motion. No edema. SKIN: Warm, dry, no rash. Capillary refill normal. Normal skin turgor. NEURO: No focal deficits. Alert and oriented x3. Gait steady. PSYCH: Normal affect. No signs of depression or anxiety. Course Course Level of Care: Express Care Visit Vital Signs Vital signs: Vital Signs Temperature 97.7 F 02/11/25 11:37 Pulse Rate 80 02/11/25 11:37 Respiratory Rate 20 02/11/25 11:37 Blood Pressure 151/78 H 02/11/25 11:37 Pulse Oximetry 100 02/11/25 11:37 Oxygen Delivery Room Air 02/11/25 11:37 Temperature 97.7 F 02/11/25 11:37 Pulse Rate 80 02/11/25 11:37 Respiratory Rate 20 02/11/25 11:37 Blood Pressure 151/78 H 02/11/25 11:37 Pulse Oximetry 100 02/11/25 11:37 Oxygen Delivery Room Air 02/11/25 11:37 Reviewed MDM - URI/Sore Throat MDM Narrative Medical decision making narrative: COVID and influenza negative. Patient has been diagnosed with URI with left otitis media and left otitis externa which she will be treated with cefdinir and ofloxacin. Anticipatory guidance given. Differential Diagnosis Differential diagnosis: Likely upper respiratory infection, otitis media, viral infection, influenza and other (COVID-19) Lab Data Attestation: I reviewed the patient's lab results. Lab results narrative: COVID and influenza negative Critical Care Time Critical Care Time Critical Care Time: No Discharge Plan Discharge Clinical Impression: Upper respiratory infection, Acute left otitis media, Left otitis externa Patient Disposition: Home, Self-Care Condition: Stable Instructions: Antibiotic Form, Swimmer's Ear (GEN), Ear Infection (ED) Additional Instructions: Please take the cefdinir and use the ear drops as directed. Please keep the left ears dry as possible for the next week. Continue allergy medication for your nasal congestion. Follow-up with your PCP in 3 days if your ear symptoms do not seem to be improving. Your blood pressure was elevated above 120/80 today at Urgent Care. This puts you above the threshold for follow up. Please schedule a followup visit with your personal physician as soon as possible, for further evaluation and treatment. Even blood pressure exceeding 120/80 may indicate pre-hypertension. Patient Language: Niuean Prescriptions: New cefdinir 300 mg capsule 300 mg PO Q12H 7 Days Qty: 14 0RF ofloxacin 0.3 % drops 10 drp EACH EAR DAILY 7 Days Qty: 5 0RF No Action loratadine 10 mg tablet 10 mg PO DAILY Qty: 30 0RF Nexplanon 68 mg Implant 1 implant SUBDERMAL ONCE Rx Instructions: as a single dose Follow-up/Referrals: Adrien Shirley MD [Primary Care Provider] - Stand Alone Forms: Work/School Release IP Time of Disposition: 12:15
[2025-02-11 12:22] LABS: EDCOVIDSCREEN Negative (Negative); EDINFLUASCREEN Negative (Negative); EDINFLUBSCREEN Negative (Negative)
== END 2025-02-11 12:19 | disposition home or self-care (01) ==
PROVIDERS: Emergency Provider Nurse Practitioner; PCP Internal Medicine
DX: J06.9 Acute upper respiratory infection, unspecified (principal); H66.92 Otitis media, unspecified, left ear; H60.92 Unspecified otitis externa, left ear; Z20.822 Contact with and (suspected) exposure to COVID-19; Z86.718 Personal history of other venous thrombosis and embolism
CPT/HCPCS: 87426; 87804; 99213; G0463

== ENCOUNTER 2025-02-16 13:09 | Emergency (ER) | payer OTHER, SELFPAY ==
[2025-02-16 13:22] VITALS: BP 126/75; PULSE 100; RESP 20; TEMP 36.4; O2SAT 99
--- NOTE | 2025-02-16 13:22 | ED.GENADULT ---
HPI - General Adult General Chief complaint: Ear Stated complaint: Left Ear/Vaginal Problems Time Seen by Provider: 02/16/25 13:22 Source: patient, RN notes reviewed and old records reviewed Mode of arrival: ambulatory Limitations: no limitations History of Present Illness HPI narrative: 19-year-old female presents to the [facility] with continued decreased hearing of her left ear, left ear discomfort and believes she has a yeast infection from taking antibiotics. States that she was seen, has been taking her antibiotics and still has a day or 2 left of mom. Related Data Home Medications ?Medication ?Instructions ?Recorded ?Confirmed ?Last Taken ?Type etonogestrel 68 mg subdermal 1 implant subdermal ONCE 01/30/23 01/03/25 Unknown History implant (Nexplanon) Allergies Allergy/AdvReac Type Severity Reaction Status Date / Time calamine Allergy Rash Verified 02/16/25 13:33 hydrocortisone Allergy Rash Verified 02/16/25 13:33 Penicillins AdvReac Hives Verified 02/16/25 13:33 Review of Systems Review of Systems: All systems reviewed & are unremarkable except as noted in HPI and below Constitutional: Constitutional: Reports no additional constitutional complaints ENT: Reports as per HPI Cardiovascular: Cardiovascular: Reports no additional cardiovascular complaints, Denies chest pain and Denies dyspnea Respiratory: Respiratory: Reports no additional respiratory complaints, Denies chest congestion, Denies cough and Denies dyspnea Musculoskeletal: Musculoskeletal: Reports no additional musculoskeletal complaints Integumentary/Breasts: Skin/Breast: Reports system reviewed and no additional complaints, except as docu PMFSH Past Medical History Medical History Deep venous thrombosis (DVT) of right peroneal vein Healthy adolescent Closed fracture of fifth metatarsal bone of right foot Patient denies significant medical history Surgical History Surgical History No pertinent past surgical history Family History Family History Mother Family history non-contributory Unknown Asthma Diabetes mellitus Father Diabetes mellitus Grandparent Diabetes mellitus Dementia Schizophrenia Other Breast cancer Lung disease Sibling Heart murmur Social History Social History Smoking status: Never smoker Alcohol intake: never Substance use: never Living arrangements: with family Occupation/Education: occupation 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 There is no relevant family history pertinent to the patient complaint. Exam Const: General: cooperative, healthy appearing, comfortable, no acute distress, well developed, alert and well nourished Nutritional Appearance: well nourished and obese Orientation/consciousness: patient oriented x3 Limitations: no limitations HENMT: Head: normal to inspection Ears: hearing grossly normal bilaterally, external ears normal, TM's normal bilaterally, EAC's normal, mastoids normal and no periauricular adenopathy Mouth: Yes Normal oral and palatal mucosa present, Yes lip normal, Yes tongue normal and Yes moist mucous membranes Throat: posterior oropharynx normal, tonsils normal, uvula midline and no uvular edema Eyes: General: appearance normal, both eyes and all related structures Alignment and Position: alignment normal Neck: Neck: normal visual inspection, full ROM, no lymphadenopathy and no meningeal signs Chest: Chest palpation & inspection: normal inspection of the chest Resp: Effort & Inspection: normal respiratory effort and able to speak in complete sentences Auscultation: clear to auscultation bilaterally, no crackles, no rales, no rhonchi and no wheezes Cardio: Rate: regular rate Skin: General skin exam: normal color and no rashes or lesions noted Neuro: General: patient oriented x3, gait normal, moves all extremities and no meningeal signs Cognition (Neuro): normal cognition Speech: normal speech Gait exam (Neuro): Normal gait present Extrem: General: normal to inspection, full ROM, capillary refill normal and normal gait Psych: Appearance: grossly normal and well kempt Mental Status: mental status grossly normal Speech and movement: Normal speech and movement present and Clear speech present Affect: normal affect Attitude: cooperative Course Course Level of Care: Express Care Visit Vital Signs Vital signs: Vital Signs Temperature 97.6 F 02/16/25 13:22 Pulse Rate 100 02/16/25 13:22 Respiratory Rate 20 02/16/25 13:22 Blood Pressure 126/75 02/16/25 13:22 Pulse Oximetry 99 02/16/25 13:22 Oxygen Delivery Room Air 02/16/25 13:22 Temperature 97.6 F 02/16/25 13:22 Pulse Rate 100 02/16/25 13:22 Respiratory Rate 20 02/16/25 13:22 Blood Pressure 126/75 02/16/25 13:22 Pulse Oximetry 99 02/16/25 13:22 Oxygen Delivery Room Air 02/16/25 13:22 Reviewed Medical Decision Making MDM Narrative Medical decision making narrative: Patient sitting comfortably in exam room. Nontoxic, vitals stable. Patient in no acute distress Patient presents for concerns for left ear discomfort, decreased hearing currently on antibiotics. Also wants treatment for yeast infection caused by the antibiotics. No erythema noted to the ear canal. No erythema to the TM. Patient appropriate for outpatient treatment and follow-up Discharge instructions reviewed with patient, as well as provided in writing per nursing staff. The instructions also include specific and strict return/GO TO THE ER as well as f/u information. All questions have been answered, and the patient deny any further questions with discharge and discharge plan. Some parts of this dictation were generated by voice recognition software and may contain typographical and/or grammatical inaccuracies. Medical Records Medical records reviewed: Yes I reviewed the external patient's medical records. Vital Signs Vital Signs: Vital Signs Temperature 97.6 F 02/16/25 13:22 Pulse Rate 100 02/16/25 13:22 Respiratory Rate 20 02/16/25 13:22 Blood Pressure 126/75 02/16/25 13:22 Pulse Oximetry 99 02/16/25 13:22 Oxygen Delivery Room Air 02/16/25 13:22 Temperature 97.6 F 02/16/25 13:22 Pulse Rate 100 02/16/25 13:22 Respiratory Rate 20 02/16/25 13:22 Blood Pressure 126/75 02/16/25 13:22 Pulse Oximetry 99 02/16/25 13:22 Oxygen Delivery Room Air 02/16/25 13:22 Reviewed Lab Data Lab results reviewed: Yes I reviewed the patient's lab results. Labs: Reviewed Critical Care Time Critical Care Time Critical Care Time: No Discharge Plan Discharge Clinical Impression: Infection due to yeast, Earache on left Patient Disposition: Home, Self-Care Condition: Stable Instructions: Antibiotic Form, Yeast Infection (ED), Earache (ED) Additional Instructions: Follow-up with your primary care provider surgery scheduled Patient Language: Arabic Prescriptions: New fluconazole 150 mg tablet 150 mg PO ONCE Qty: 1 0RF Rx Instructions: as a single dose No Action loratadine 10 mg tablet 10 mg PO DAILY Qty: 30 0RF Nexplanon 68 mg Implant 1 implant SUBDERMAL ONCE Rx Instructions: as a single dose cefdinir 300 mg capsule 300 mg PO Q12H 7 Days Qty: 14 0RF ofloxacin 0.3 % drops 10 drp EACH EAR DAILY 7 Days Qty: 5 0RF Follow-up/Referrals: Adrien Shirley MD [Primary Care Provider] - Time of Disposition: 13:32
== END 2025-02-16 13:40 | disposition home or self-care (01) ==
PROVIDERS: Emergency Provider Nurse Practitioner; PCP Internal Medicine
DX: B37.9 Candidiasis, unspecified (principal); H92.02 Otalgia, left ear; Z79.2 Long term (current) use of antibiotics
CPT/HCPCS: 99213; G0463

== ENCOUNTER 2025-10-02 18:10 | Emergency (ER) | payer OTHER, SELFPAY ==
[2025-10-02 18:19] VITALS: BP 128/72; PULSE 90; RESP 20; TEMP 37.1; O2SAT 100
--- NOTE | 2025-10-02 18:53 | ED.NAVMDI ---
HPI - Nausea/Vomiting/Diarrhea General Chief complaint: Nausea/Vomiting/Diarrhea Stated complaint: Nausea Time Seen by Provider: 10/02/25 18:35 Source: patient and RN notes reviewed Mode of arrival: ambulatory Limitations: no limitations History of Present Illness HPI Narrative: 20 year old female patient presents today complaining of intermittent nausea and vomiting and bilateral abdominal cramping over the past 3 days. States she vomited several times yesterday but only once this morning and has been able to keep down some fluids and food since time. She also reports some very mild urinary frequency but denies dysuria, hematuria, urgency, or other urinary symptoms. Denies diarrhea constipation, fever, cough or upper respiratory symptoms. She has taking Tylenol with some mild improvement. Related Data Allergies Allergy/AdvReac Type Severity Reaction Status Date / Time calamine Allergy Rash Verified 10/02/25 18:11 hydrocortisone Allergy Rash Verified 10/02/25 18:11 Penicillins AdvReac Hives Verified 10/02/25 18:11 PMFSH Past Medical History Medical History Deep venous thrombosis (DVT) of right peroneal vein Healthy adolescent Closed fracture of fifth metatarsal bone of right foot Patient denies significant medical history Surgical History Surgical History No pertinent past surgical history Family History Family History Mother Family history non-contributory Unknown Asthma Diabetes mellitus Father Diabetes mellitus Grandparent Diabetes mellitus Dementia Schizophrenia Other Breast cancer Lung disease Sibling Heart murmur Social History Social History Alcohol intake: never Substance use: never Living arrangements: with family Occupation/Education: occupation 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 Please see nursing chart for further information. There is no relevant family history pertinent to the presenting complaint Exam Narrative: GENERAL: Well-appearing, well-nourished, and in no acute distress. HEAD: Normocephalic, atraumatic. EYES: EOMI. No redness or drainage. Conjunctivae normal. ENT: Mucous membranes pink and moist. Nares clear. No rhinorrhea. TMs normal bilaterally. Throat normal. Uvula midline. NECK: Normal AROM. Supple. No lymphadenopathy. CHEST: No respiratory distress. Clear to auscultation. HEART: Regular rate and rhythm. No murmur appreciated. Normal peripheral pulses. ABDOMEN: Soft, nondistended, normal active bowel sounds.+ very mild tenderness of the bilateral lower quadrants without rebound or guarding. EXTREMITIES: Normal range of motion. No edema. SKIN: Warm, dry, no rash. Capillary refill normal. Normal skin turgor. NEURO: No focal deficits. Alert and oriented x3. Gait steady. PSYCH: Normal affect. No signs of depression or anxiety. Course Course Level of Care: Express Care Visit Vital Signs Vital signs: Vital Signs Temperature 98.7 F 10/02/25 18:19 Pulse Rate 90 10/02/25 18:19 Respiratory Rate 20 10/02/25 18:19 Blood Pressure 128/72 10/02/25 18:19 Pulse Oximetry 100 10/02/25 18:19 Oxygen Delivery Room Air 10/02/25 18:19 Temperature 98.7 F 10/02/25 18:19 Pulse Rate 90 10/02/25 18:19 Respiratory Rate 20 10/02/25 18:19 Blood Pressure 128/72 10/02/25 18:19 Pulse Oximetry 100 10/02/25 18:19 Oxygen Delivery Room Air 10/02/25 18:19 Reviewed MDM - Nausea/Vomiting/Diarrhea MDM Narrative Medical decision making narrative: 20 year old female patient presents today complaining of intermittent nausea and vomiting and bilateral abdominal cramping over the past 3 days. States she vomited several times yesterday but only once this morning and has been able to keep down some fluids and food since time. She also reports some very mild urinary frequency but denies dysuria, hematuria, urgency, or other urinary symptoms. Denies diarrhea constipation, fever, cough or upper respiratory symptoms. She has taking Tylenol with some mild improvement. Upon exam, patient has some very mild tenderness to the bilateral lower quadrants without rebound or guarding. UA positive for 1+ leukocytes but is otherwise negative. Culture pending. It is reassuring that the vomiting has significantly improved since yesterday. Will prescribe some Zofran. Symptoms likely viral in etiology. Discussed vhim-dsa-[id number] medication, advancing fluids/food as tolerated. Patient also requesting work note. Vital signs stable. Patient agrees with plan. Anticipatory guidance given. Differential Diagnosis Differential diagnosis: Likely food poisoning, gastroenteritis and dehydration Lab Data Attestation: I reviewed the patient's lab results. Labs: Lab Results 10/02/25 10/02/25 Range/Units 18:54 18:55 POC Urine Color Yellow POC Urine Clarity Cloudy POC Urine pH 8.5 POC Ur Specif [place] 1.025 POC Urine Protein Negative (Negative) POC Ur Glucose (UA) Negative (Negative) POC Urine Ketones Negative (Negative) POC Urine Blood Negative (Negative) POC Urine Nitrite Negative (Negative) POC Urine Bilirubin Negative (Negative) POC Urine Urobilinogen 2.0 POC U Leukocyte Esteras 1+ (Negative) POC Urine HCG, Qual Negative (Negative) Critical Care Time Critical Care Time Critical Care Time: No Discharge Plan Discharge Clinical Impression: Nausea & vomiting Qualifiers: Vomiting type: unspecified Qualified Code(s): R11.2 - Nausea with vomiting, unspecified Patient Disposition: Home Condition: Stable Instructions: Acute Nausea and Vomiting (DC) Additional Instructions: Your urinalysis is negative for infection today. You will be notified in a few days if the culture comes back positive for infection, and appropriate antibiotics will be called in for you at that time. Continue to stay hydrated. Take the Zofran if needed for nausea and vomiting. Go to the ER if symptoms worsen to include development of new fever greater than 100.3, worsening abdominal discomfort. Patient Language: Bulgarian Prescriptions: New ondansetron 4 mg tablet,disintegrating 4 mg PO TID PRN (Reason: nausea and vomiting) Qty: 10 0RF Follow-up/Referrals: Adrien Shirley MD [Primary Care Provider, Hospitalist] Stand Alone Forms: Work/School Release IP Time of Disposition: 19:02
[2025-10-02 18:55] LABS: BEDSIDEPREGUCG Negative (Negative)
[2025-10-02 18:57] LABS: EDUAAPPEAR Cloudy; EDUABILI Negative (Negative); EDUABLOOD Negative (Negative); EDUACOLOR1 Yellow; EDUAGLUCOSE Negative (Negative); EDUAKETONE Negative (Negative); EDUALEUKO 1+ (Negative); EDUANITRATE Negative (Negative); EDUAPH 8.5; EDUAPROTEIN Negative (Negative); EDUASPGRAVITY 1.025; EDUAUROBILI 2.0
== END 2025-10-02 19:04 | disposition home or self-care (01) ==
PROVIDERS: Emergency Provider Nurse Practitioner; PCP Internal Medicine
DX: R11.2 Nausea with vomiting, unspecified (principal)
CPT/HCPCS: 81003; 81025; 87086; 99213; G0463